=== PATIENT | female | born 1940 | race Caucasian/White ===

== ENCOUNTER 2022-02-20 12:45 | Emergency (ER) | payer OTHER ==
[2022-02-20 13:19] VITALS: BP 118/79; PULSE 91; RESP 17; TEMP 98.8; BMI 21.2
[2022-02-20] MEDS ORDERED: MAG HYDROX/AL HYDROX/SIMETH 30 ML UNIT-DOSE CUP PO ONE (14:10)
[2022-02-20] MEDS ORDERED: FAMOTIDINE 20 MG/50 ML IVPB 20 MG/50 ML MG IVPB ONE ×2 (14:10→14:40)
[2022-02-20 14:36] LABS: HEMATOCRIT 41.7 % (32.4-45.2); HEMOGLOBIN 13.6 GM/dL (10.7-15.3); MCH 27.7 pg (25.7-33.7); MCHC 32.7 g/dl (32.0-36.0); MEAN CELL VOLUME 84.8 fl (80-96); MEAN PLT VOLUME 10.2 fl (7.5-11.1); PLATELET COUNT 164 10^3/uL (134-434); RBC 4.92 M/mm3 (3.60-5.2); RDW 15.7 % (11.6-15.6); WHITE BLOOD COUNT 7.1 K/mm3 (4.0-10.0)
[2022-02-20] MEDS ORDERED: MAG HYDROX/AL HYDROX/SIMETH 30 ML UNIT-DOSE CUP ONE (14:40)
[2022-02-20 15:05] LABS: CALCIUM 9.1 mg/dL (8.5-10.1)
[2022-02-20 15:06] LABS: ALBUMIN 3.2 g/dl (3.4-5.0); BLOOD UREA NITROGEN 19.9 mg/dL (7-18)
[2022-02-20 15:08] LABS: CREATININE 0.8 mg/dL (0.55-1.3)
[2022-02-20 15:10] LABS: BILIRUBIN,TOTAL 0.5 mg/dL (0.2-1); TOT PROT 6.2 g/dl (6.4-8.2)
[2022-02-20 15:47] LABS: ANISOCYTOSIS 0; MACROCYTOSIS 0
== END 2022-02-20 19:14 ==
LOC: JER 12:45
PROC: 3E033GC Introduction of Other Therapeutic Substance into Peripheral Vein, Percutaneous Approach (ICD-10-PCS; principal; 2022-02-20)
DX: R11.0 Nausea (principal)
CPT/HCPCS: 36415; 70450-TC; 80053; 83690; 84484; 85025; 93005; 93010; 99285-25